=== PATIENT | male | born 1990 | race Caucasian/White ===

== ENCOUNTER 2025-02-02 00:53 | Emergency (ER) | payer OTHER ==
[~2025-02-02] VITALS: Ht 177.8 cm; Wt 79.5 kg
[2025-02-02 00:54] VITALS: BP 131/76; PULSE 74; RESP 16; TEMP 98.6; O2SAT 98
[2025-02-02] MEDS: BACITRACIN 0.9 GM PACKET OINTMENT TP ONE (01:45)
[2025-02-02] MEDS: PERTUSS(ACELL),DIPH,TET/PF 0.5 ML SYRINGE [ADULT] IM. ONE (01:45)
== END 2025-02-02 02:21 | disposition home or self-care (01) ==
LOC: EMS 02:11
DX: S61.210A Laceration without foreign body of right index finger without damage to nail, initial encounter (principal); F12.90 Cannabis use, unspecified, uncomplicated; W22.8XXA Striking against or struck by other objects, initial encounter; Y93.89 Activity, other specified; Y92.89 Other specified places as the place of occurrence of the external cause; Y99.0 Civilian activity done for income or pay
CPT/HCPCS: 12001; 90471; 90715; 99283

== ENCOUNTER 2025-02-02 10:47 | Emergency (ER) | payer OTHER ==
[~2025-02-02] VITALS: Ht 177.8 cm; Wt 180.0 kg
[2025-02-02 11:04] VITALS: TEMP 98
[2025-02-02 13:03] VITALS: BP 122/70; PULSE 75; RESP 16; O2SAT 99
== END 2025-02-02 13:07 | disposition home or self-care (01) ==
LOC: EMS 10:47
DX: S61.411D Laceration without foreign body of right hand, subsequent encounter (principal); F12.90 Cannabis use, unspecified, uncomplicated; W45.8XXD Other foreign body or object entering through skin, subsequent encounter; Y93.89 Activity, other specified; Y92.89 Other specified places as the place of occurrence of the external cause; Y99.8 Other external cause status
CPT/HCPCS: 99282; Z7502

== ENCOUNTER 2025-02-12 17:54 | Emergency (ER) | payer OTHER | END 2025-02-12 18:36 | disposition left against medical advice (07) | LOC: EMS 17:54 | DX: Z48.02 Encounter for removal of sutures (principal); Z53.21 Procedure and treatment not carried out due to patient leaving prior to being seen by health care provider ==

== ENCOUNTER 2025-02-12 19:28 | Emergency (ER) | payer OTHER ==
[~2025-02-12] VITALS: Ht 175.3 cm; Wt 81.8 kg
[2025-02-12 19:35] VITALS: BP 120/73; PULSE 71; RESP 18; TEMP 98.1; O2SAT 100
== END 2025-02-12 21:15 | disposition left against medical advice (07) ==
LOC: EMS 19:28
DX: Z48.02 Encounter for removal of sutures (principal); Z53.21 Procedure and treatment not carried out due to patient leaving prior to being seen by health care provider

== ENCOUNTER 2025-02-15 22:25 | Emergency (ER) | payer OTHER ==
[~2025-02-15] VITALS: Ht 175.3 cm; Wt 81.0 kg
[2025-02-15 22:47] VITALS: BP 119/65; PULSE 75; RESP 18; TEMP 97.6; O2SAT 100
== END 2025-02-16 00:26 | disposition home or self-care (01) ==
LOC: EMS 22:41
DX: S61.411D Laceration without foreign body of right hand, subsequent encounter (principal); F12.90 Cannabis use, unspecified, uncomplicated; X58.XXXD Exposure to other specified factors, subsequent encounter
CPT/HCPCS: 99281; Z7502